=== PATIENT | female | born 1985 | race Caucasian/White ===

== ENCOUNTER 2019-03-03 09:19 | Emergency (ER) | payer SELFPAY, MEDICAID ==
[2019-03-03] MEDS: FENTAnyl 50 MCG/ML VIAL IV (09:56)
[2019-03-03] MEDS: HYDROCODONE/APAP (10/325) TAB PO (11:46)
== END 2019-03-03 12:35 | disposition home or self-care (01) ==
LOC: E/R 09:19
DX: S52.611A Displaced fracture of right ulna styloid process, initial encounter for closed fracture (principal); S52.531A Colles' fracture of right radius, initial encounter for closed fracture; M79.631 Pain in right forearm; V49.49XA Driver injured in collision with other motor vehicles in traffic accident, initial encounter
CPT/HCPCS: 36415; 73080-RT; 73090-RT; 73110-RT; 80048; 84703; 85025; 85610; 85730; 96374; 99284-25